=== PATIENT | male | born 1965 | race African-American/Black ===

== ENCOUNTER 2016-05-22 00:27 | Emergency (ER) | payer OTHER ==
[~2016-05-22] VITALS: Ht 170.2 cm; Wt 90.0 kg
[2016-05-22 00:30] VITALS: Ht 170.2 cm; Wt 90.0 kg
[2016-05-22] MEDS ORDERED: KETOROLAC 30 MG INJ IM STA (01:25)
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
[2016-05-22] MEDS ORDERED: HYDR-902 PO (01:35)
[2016-05-22] MEDS ORDERED: NAPR-260 PO (01:35)
[2016-05-22 02:23] VITALS: BP 142/88; PULSE 90; RESP 18; TEMP 98.3
== END 2016-05-22 02:28 | disposition home or self-care (01) ==
LOC: FTE 00:27
DX: M79.601 Pain in right arm (principal); I10 Essential (primary) hypertension; E11.9 Type 2 diabetes mellitus without complications; F17.210 Nicotine dependence, cigarettes, uncomplicated
CPT/HCPCS: 93005; 96372; J1885; Z7502

== ENCOUNTER 2016-11-13 00:49 | Emergency (ER) | payer OTHER ==
[~2016-11-13] VITALS: Ht 180.3 cm; Wt 83.0 kg
[~2016-11-13 00:49] MED LIST: HYDR-902 PO; NAPR-260 PO
[2016-11-13 00:58] VITALS: Ht 180.3 cm; Wt 83.0 kg
--- NOTE | 2016-11-13 01:47 | ERA ---
ER Documentation Chief Complaint Date/Time DATE: 11/13/16 TIME: 01:46 Chief Complaint Bloody stool HPI The patient is a 50-year-old male, presenting to the ER because dark right bloody stool intermittently for the last 3-4 days, associated with constipation. He has similar symptoms previously. He denies fever, chills, syncope, near syncope, weakness, neck pain, chest pain, abdominal pain, vomiting. He smokes and drinks and does marijuana Past medical history: Ulcerative colitis, hypertension, hemorrhoids Past surgical history: Abdominal surgery related to ulcerative colitis ROS All systems reviewed and are negative except as per history of present illness. Medications Home Meds Active Scripts Naproxen* (Naprosyn*) 500 Mg Tablet, 500 MG PO BID Y for PAIN AND/OR INFLAMMATION, #30 TAB Prov:PAOLO HO PA-C 05/22/16 Reported Medications Sitagliptin* (Januvia*) Unknown Strength Tablet, PO DAILY, #30 TAB 11/13/16 Enalapril Maleate* (Enalapril Maleate*) Unknown Strength Tablet, PO DAILY, TAB 11/13/16 Metoprolol Tartrate* (Lopressor*) Unknown Strength Tab, PO BID, #60 TAB 11/13/16 Discontinued Scripts Hydrocodone/Acetaminophen (Murdo 10-325 Tablet) 1 Each Tablet, 1 TAB PO Q6H Y for PAIN, #7 TAB Prov:PAOLO HO PA-C 05/22/16 Allergies Allergies: Coded Allergies: No Known Allergy (Unverified , 11/13/16) PMhx/Soc History of Surgery: No Anesthesia Reaction: No Hx Neurological Disorder: No Hx Respiratory Disorders: No Hx Cardiac Disorders: Yes (HTN) Hx Psychiatric Problems: No Hx Miscellaneous Medical Probl: No Hx Alcohol Use: Yes (socially ) Hx Substance Use: No Hx Tobacco Use: Yes (3 cig/day) Physical Exam Vitals Vital Signs Date Time Temp Pulse Resp B/P Pulse Ox O2 Delivery O2 Flow Rate FiO2 11/13/16 02:09 69 20 160/109 100 Room Air 11/13/16 00:58 98.3 78 20 127/94 98 Physical Exam Const: No acute distress. Head: Atraumatic. Eyes: Normal Conjunctiva. ENT: Normal External Ears, Nose and Mouth. Neck: Full range of motion. No meningismus. Resp: Clear to auscultation bilaterally. Cardio: Regular rate and rhythm. Abd: Soft, non distended, normal bowel sounds, non tender. Midline abdominal scar Skin: No petechiae or rashes. Back: No midline or flank tenderness. Ext: No cyanosis, or edema. Neur: Awake and alert. No focal deficit Psych: Normal Mood and Affect. Result Diagram: 11/13/165 11/13/16 0225 Results 24 hrs Laboratory Tests Test 11/13/16 02:25 White Blood Count 7.710^3/ul Red Blood Count 4.3310^6/ul Hemoglobin 14.3g/dl Hematocrit 40.8% Mean Corpuscular Volume 94.2fl Mean Corpuscular Hemoglobin 33.0pg Mean Corpuscular Hemoglobin Concent 35.0g/dl Red Cell Distribution Width 13.1% Platelet Count 12893^3/UL Mean Platelet Volume 11.6fl Neutrophils % 41.7% Lymphocytes % 46.0% Monocytes % 9.3% Eosinophils % 2.4% Basophils % 0.5% Nucleated Red Blood Cells % 0.0/100WBC Neutrophils # 3.210^3/ul Lymphocytes # 3.510^3/ul Monocytes # 0.710^3/ul Eosinophils # 0.210^3/ul Basophils # 0.010^3/ul Nucleated Red Blood Cells # 0.010^3/ul Prothrombin Time 13.3Sec Prothrombin Time Ratio 1.0 INR International Normalized Ratio 1.01 Activated Partial Thromboplast Time 28.5Sec Sodium Level 146mmol/L Potassium Level 4.2mmol/L Chloride Level 108mmol/L Carbon Dioxide Level 24mmol/L Anion Gap 18 Blood Urea Nitrogen 15mg/dl Creatinine 1.58mg/dl Glucose Level 91mg/dl Calcium Level 9.8mg/dl Total Bilirubin 0.2mg/dl Direct Bilirubin 0.00mg/dl Indirect Bilirubin 0.2mg/dl Aspartate Amino Transf (AST/SGOT) 58IU/L Alanine Aminotransferase (ALT/SGPT) 36IU/L Alkaline Phosphatase 103IU/L Total Protein 8.1g/dl Albumin 4.8g/dl Globulin 3.30g/dl Albumin/Globulin Ratio 1.45 Lipase 430U/L Ethyl Alcohol Level 144.0mg/dl [facility] EKG: Read by emergency physician Rate/Rhythm: Normal Sinus Rhythm 67 beats/min QRS, ST, T-waves: No ST elevation, no T inversion, septal Q waves Impression: Abnormal EKG MEDICAL MAKING DECISION: The patient is a 50-year-old male, presenting with acute hematochezia most likely due to hemorrhoids, acute alcohol abuse. He does not have any abdominal pain. He is stable for outpatient follow-up The differential diagnoses considered include but are not limited to gastritis, peptic ulcer disease, esophageal varices, Zamzam-Jara tear, carcinoma, polyp , hemorrhoid, fissure, diverticulosis, angiodysplasia. Departure Diagnosis: Primary Impression: Hemorrhoid Additional Impressions: Hematochezia Alcohol abuse Renal insufficiency Thrombocytopenia Condition: Good Comments I discussed the findings with the patient. I advised the patient to follow-up with the primary physician tomorrow for motor vehicle inspector appointment in about 1-2 days, sooner if needed and return if any concern. HARSHAD IRBY MD Nov 13, 2016 01:47
[2016-11-13 03:05] LABS: ADD SCAN DIFF NO
[2016-11-13 03:08] LABS: BASOPHILS % 0.5 % (0.0-2.0); EOSINOPHILS # 0.2 10^3/ul (0.0-0.5); EOSINOPHILS % 2.4 % (0.0-7.0); HEMATOCRIT 40.8 % (42.0-52.0); HEMOGLOBIN 14.3 g/dl (14.0-18.0); LYMPHOCYTES # 3.5 10^3/ul (0.8-2.9); MEAN CORPUSCULAR VOLUME 94.2 fl (82.0-101.0); MEAN PLATELET VOLUME 11.6 fl (7.4-10.4); MONOCYTE # 0.7 10^3/ul (0.3-0.9); MONOCYTES % 9.3 % (0.0-11.0); NEUTROPHIL # 3.2 10^3/ul (1.6-7.5); NEUTROPHILS % 41.7 % (39.0-77.0); PLATELET COUNT 119 10^3/UL (140-415); RED BLOOD COUNT 4.33 10^6/ul (4.70-6.10); RED CELL DISTRIBUTION WIDTH 13.1 % (11.5-14.5); WHITE BLOOD COUNT 7.7 10^3/ul (4.8-10.8)
[2016-11-13 03:27] LABS: INR 1.01; PROTIME 13.3 Sec (12.2-14.2)
[2016-11-13 03:28] LABS: ALBUMIN 4.8 g/dl (3.3-4.9); ALBUMIN/GLOBULIN RATIO 1.45; BILIRUBIN,INDIRECT 0.2 mg/dl (0-1.1); BILIRUBIN,TOTAL 0.2 mg/dl (0.2-1.3); CALCIUM 9.8 mg/dl (8.4-10.2); CREATININE 1.58 mg/dl (0.61-1.24); PARTIAL THROMBOPLASTIN TIME 28.5 Sec (25.0-35.0); POTASSIUM 4.2 mmol/L (3.5-5.1); TOTAL PROTEIN 8.1 g/dl (6.1-8.1)
[2016-11-13] MEDS ORDERED: SITA50TA2 PO (03:30)
[2016-11-13] MEDS ORDERED: ENAL10TA PO (03:30)
[2016-11-13] MEDS ORDERED: METO-429 PO (03:30)
[2016-11-13 04:18] VITALS: BP 124/98; PULSE 68; RESP 18
== END 2016-11-13 04:17 | disposition home or self-care (01) ==
LOC: E/R 00:49
DX: K64.9 Unspecified hemorrhoids (principal); R40.2252 Coma scale, best verbal response, oriented, at arrival to emergency department; F10.10 Alcohol abuse, uncomplicated; N28.9 Disorder of kidney and ureter, unspecified; D69.6 Thrombocytopenia, unspecified; I10 Essential (primary) hypertension; F17.210 Nicotine dependence, cigarettes, uncomplicated; R40.2142 Coma scale, eyes open, spontaneous, at arrival to emergency department; R40.2362 Coma scale, best motor response, obeys commands, at arrival to emergency department; Z79.84 Long term (current) use of oral hypoglycemic drugs
CPT/HCPCS: 36415; 80053; 80306; 83690; 85025; 85610; 85730; 86850; 86900; 86901; 93005

== ENCOUNTER 2017-08-01 12:02 | Emergency (ER) | END 2017-08-01 14:56 | disposition home or self-care (01) ==

== ENCOUNTER 2017-08-05 08:20 | Emergency (ER) | END 2017-08-05 09:11 | disposition home or self-care (01) ==

== ENCOUNTER 2017-08-30 07:59 | Emergency (ER) | END 2017-08-30 09:03 | disposition home or self-care (01) ==

== ENCOUNTER 2017-09-09 19:39 | Emergency (ER) | END 2017-09-09 22:53 | disposition home or self-care (01) ==

== ENCOUNTER 2018-01-30 10:23 | Emergency (ER) | END 2018-01-30 11:36 | disposition home or self-care (01) ==

== ENCOUNTER 2018-06-07 06:53 | Emergency (ER) | payer OTHER ==
[~2018-06-07] VITALS: Wt 78.0 kg
[~2018-06-07 06:53] MED LIST changes: +ASPI-817 PO; +ENAL20TA PO; -HYDR-902 PO; +HYDR28.39 RC; +IBUP-1542 PO; +METO-429 PO; -NAPR-260 PO; +NAPR-985 PO; +SITA25TA3 PO; +SITA50TA2 PO; +SULF500T5 PO
[2018-06-07 06:56] VITALS: BP 170/78; PULSE 90; RESP 18
[2018-06-07] MEDS ORDERED: SITA25TA3 PO (07:10)
--- NOTE | 2018-06-07 07:23 | ERD ---
ER Documentation Chief Complaint Chief Complaint med refill HPI 52-year-old male patient with a past medical history of diabetes, hypertension presents the ED on a medication refill. Patient reports that he takes Januvia. States that he also takes metoprolol, enalapril for his hypertension, reports that he still has these medications at home. Denies any chest pain, shortness of breath, fever,nausea, vomiting, diarrhea, neck stiffness. ROS All systems reviewed and are negative except as per history of present illness. Medications Home Meds Active Scripts Sitagliptin* (Januvia*) 25 Mg Tablet, 25 MG PO DAILY, #30 TAB Prov:AMY GAVIN PA-C 06/07/18 Sitagliptin* (Januvia*) 25 Mg Tablet, 25 MG PO DAILY, #30 TAB Prov:CATIE SAM PA-C 01/30/18 Ibuprofen* (Motrin*) 600 Mg Tab, 600 MG PO Q6, #30 TAB Prov:CATIE SAM PA-C 01/30/18 Hydrocortisone (PROCTOSOL-HC) 28.35 Gm Cream..g., 28.35 GM RC DAILY, #1 Prov:CATIE SAM PA-C 01/30/18 Naproxen* (Naprosyn*) 500 Mg Tablet, 500 MG PO BID PRN for PAIN AND/OR INFLAMMATION, #30 TAB Prov:KATIE ROBLEDO MD 09/09/17 Reported Medications Sitagliptin* (Januvia*) 50 Mg Tablet, 50 MG PO DAILY, #30 TAB 09/09/17 Aspirin* (Aspirin* EC) 81 Mg Tablet.dr, 81 MG PO DAILY, TAB 09/09/17 Sulfasalazine* (Sulfazine*) 500 Mg Tablet, 1000 MG PO BID, TAB 09/09/17 Metoprolol Tartrate* (Lopressor*) 50 Mg Tab, 50 MG PO BID, #60 TAB 09/09/17 Enalapril Maleate* (Enalapril Maleate*) 20 Mg Tablet, 20 MG PO BID, TAB 09/09/17 Allergies Allergies: Coded Allergies: No Known Allergy (Unverified , 09/09/17) PMhx/Soc History of Surgery: Yes (RIGHT LEG AND BOTH WRISTS 2008) Anesthesia Reaction: No Hx Neurological Disorder: No Hx Respiratory Disorders: No Hx Cardiac Disorders: Yes (HTN,HYPERCHOLESTEROLEMIA) Hx Psychiatric Problems: Yes (DEPRESSION) Hx Miscellaneous Medical Probl: Yes (DM) Hx Alcohol Use: Yes (almost everyday) Hx Substance Use: Yes (marijuana) Hx Tobacco Use: Yes Smoking Status: Current every day smoker FmHx Family History: No diabetes, No coronary disease Physical Exam Vitals Vital Signs Date Temp Pulse Resp B/P (MAP) Pulse Ox O2 O2 Flow FiO2 Time Delivery Rate 06/07/18 98.2 90 18 170/78 99 06:56 (108) Physical Exam Const: Zlm-gbb-[id number], well-nourished. In no acute distress. Head: Atraumatic, normocephalic Eyes: Normal Conjunctiva without injection. No purulent discharge. PERRL. EOMI ENT: Normal external ear. Ear canal without erythema. Tympanic membrane pearly raya without effusion or bulging. Nasal canal clear with normal turbinates. Moist oropharynx without tonsillar exudates. Non-erythematous pharynx. Uvula midline. No drooling. No trismus. Neck: Full range of motion. No meningismus. No cervical lymphadenopathy. Resp: Clear to auscultation bilaterally. No wheezing, rhonchi, rales, or crackles. No accessory muscle use. No retractions. Cardio: Regular rate and rhythm. No murmurs, rubs or gallops. Abd: Soft, non tender, non distended. Normal bowel sounds. No palpable masses. No rebound tenderness. No guarding. Skin: No petechiae or rashes Back: No midline tenderness. No CVA tenderness. Ext: No cyanosis, or edema. Neur: Awake and alert. Psych: Normal Mood and Affect Procedures/MDM 52-year-old male patient with no significant past medical history presents to ED for a medication refill. Patient states that he wants a refill for Januvia 25 mg PO daily. Patient's blood pressure is 170/78. Patient did not take his blood pressure medications today. Strictly instructed to take his blood pressure medication at home. Blood Pressure Assessment: Patient's blood pressure was elevated (>120/80) but appears stable without evidence of hypertension emergency or urgency. The patient was counseled about the risks of hypertension and urged to pursue outpatient monitoring and therapy within a week with their primary care physician. Low suspicion for acute myocardial infarction, pneumothorax, pericarditis, myocarditis, endocarditis, pneumonia, cardiac tamponade, pulmonary embolism, pleural effusion, AAA, aortic dissection, Boerhaave's syndrome, cardiac dysrhythmias,meningitis, intracranial bleed, seizure, stroke, TIA or other emergent conditions. Diagnosis: Encounter for medication refill Discharge medications: Carmeloia Follow up with primary care physician in 1-2 days. Instructed patient to return to the ED sooner for any worsening symptoms. Patient's questions were answered. Patient is hemodynamically stable. Patient understood and agreed with discharge plan. Patient discharged stable. Disclaimer: Inadvertent spelling and grammatical errors are likely due to EHR/dictation software use and do not reflect on the overall quality of patient care. Also, please note that the electronic time recorded on this note does not necessarily reflect the actual time of the patient encounter. Departure Diagnosis: Primary Impression: Encounter for medication refill Condition: Stable Patient Instructions: Taking Medicine Safely, High Blood Pressure (Hypertension), DIABETES, General Info Referrals: [facility] YOU HAVE RECEIVED A MEDICAL SCREENING EXAM AND THE RESULTS INDICATE THAT YOU DO NOT HAVE A CONDITION THAT REQUIRES URGENT TREATMENT IN THE EMERGENCY DEPARTMENT. FURTHER EVALUATION AND TREATMENT OF YOUR CONDITION CAN WAIT UNTIL YOU ARE SEEN IN YOUR DOCTORS OFFICE WITHIN THE NEXT 1-2 DAYS. IT IS YOUR RESPONSIBILITY TO MAKE AN APPOINTMENT FOR FOLOW-UP CARE. IF YOU HAVE A PRIMARY DOCTOR --you should call your primary doctor and schedule an appointment IF YOU DO NOT HAVE A PRIMARY DOCTOR YOU CAN CALL OUR PHYSICIAN REFERRAL HOTLINE AT IF YOU CAN NOT AFFORD TO SEE A PHYSICIAN YOU CAN CHOSE FROM THE FOLLOWING [facility] [address] [facility]. [facility] [address] [facility]. [facility] [address] [facility] [address] [facility]. [facility] [address] [facility]. [facility]. [address] [facility]. [facility] YOU HAVE RECEIVED A MEDICAL SCREENING EXAM AND THE RESULTS INDICATE THAT YOU DO NOT HAVE A CONDITION THAT REQUIRES URGENT TREATMENT IN THE EMERGENCY DEPARTMENT. FURTHER EVALUATION AND TREATMENT OF YOUR CONDITION CAN WAIT UNTIL YOU ARE SEEN IN YOUR DOCTORS OFFICE WITHIN THE NEXT 1-2 DAYS. IT IS YOUR RESPONSIBILITY TO MAKE AN APPOINTMENT FOR FOLOW-UP CARE. IF YOU HAVE A PRIMARY DOCTOR --you should call your primary doctor and schedule and appointment IF YOU DO NOT HAVE A PRIMARY DOCTOR YOU CAN CALL OUR PHYSICIAN REFERRAL HOTLINE AT . IF YOU CAN NOT AFFORD TO SEE A PHYSICIAN YOU CAN CHOSE FROM THE FOLLOWING [facility] INSTITUTIONS: [facility] [place] [address] [place] [address] [facility] [address] [place] [address] [facility] + [facility] [address] [place] [address] [facility] URGENT CARE/SPECIALTIES Additional Instructions: Call your primary care doctor TOMORROW for an appointment during the next 2-3 days.See the doctor sooner or return here if your condition worsens before your appointment time. AMY GAVIN PA-C Jun 07, 2018 07:23
== END 2018-06-07 07:31 | disposition home or self-care (01) ==
LOC: FTE 06:53
DX: Z76.0 Encounter for issue of repeat prescription (principal); E11.9 Type 2 diabetes mellitus without complications; I10 Essential (primary) hypertension; F17.210 Nicotine dependence, cigarettes, uncomplicated; Z79.82 Long term (current) use of aspirin; Z79.84 Long term (current) use of oral hypoglycemic drugs
CPT/HCPCS: 99281

== ENCOUNTER 2018-07-15 09:34 | Emergency (ER) | payer OTHER ==
[~2018-07-15] VITALS: Ht 180.3 cm; Wt 76.1 kg
[2018-07-15 09:36] VITALS: BP 167/114; PULSE 87; RESP 18; Ht 180.3 cm; Wt 76.1 kg
[2018-07-15] MEDS ORDERED: IBUP-1561 PO (10:20)
[2018-07-15] MEDS ORDERED: SITA25TA3 PO (10:20)
--- NOTE | 2018-07-15 10:27 | ERD ---
ER Documentation Chief Complaint Chief Complaint FOR REFILL ON DAIBETIC PILLS HPI 52-year-old male presents for refill on Januvia which he ran out 4 days ago. He is otherwise completely asymptomatic, and has no acute medical complaints. Denies fever, denies chest pain or shortness of breath. ROS All systems reviewed and are negative except as per history of present illness. Medications Home Meds Active Scripts Ibuprofen* (Motrin*) 400 Mg Tab, 400 MG PO Q8, #30 TAB Prov:KATIE ERNST MD 07/15/18 Sitagliptin* (Januvia*) 25 Mg Tablet, 25 MG PO DAILY, #30 TAB 3 Refills Prov:KATIE ERNST MD 07/15/18 Sitagliptin* (Januvia*) 25 Mg Tablet, 25 MG PO DAILY, #30 TAB Prov:AMY GAVIN PA-C 06/07/18 Sitagliptin* (Januvia*) 25 Mg Tablet, 25 MG PO DAILY, #30 TAB Prov:CATIE SAM PA-C 01/30/18 Ibuprofen* (Motrin*) 600 Mg Tab, 600 MG PO Q6, #30 TAB Prov:CATIE SAM PA-C 01/30/18 Hydrocortisone (PROCTOSOL-HC) 28.35 Gm Cream..g., 28.35 GM RC DAILY, #1 Prov:CATIE SAM PA-C 01/30/18 Naproxen* (Naprosyn*) 500 Mg Tablet, 500 MG PO BID PRN for PAIN AND/OR INFLAMMATION, #30 TAB Prov:KATIE ROBLEDO MD 09/09/17 Reported Medications Sitagliptin* (Januvia*) 50 Mg Tablet, 50 MG PO DAILY, #30 TAB 09/09/17 Aspirin* (Aspirin* EC) 81 Mg Tablet.dr, 81 MG PO DAILY, TAB 09/09/17 Sulfasalazine* (Sulfazine*) 500 Mg Tablet, 1000 MG PO BID, TAB 09/09/17 Metoprolol Tartrate* (Lopressor*) 50 Mg Tab, 50 MG PO BID, #60 TAB 09/09/17 Enalapril Maleate* (Enalapril Maleate*) 20 Mg Tablet, 20 MG PO BID, TAB 09/09/17 Allergies Allergies: Coded Allergies: No Known Allergy (Unverified , 09/09/17) PMhx/Soc History of Surgery: Yes (RIGHT LEG AND BOTH WRISTS 2008) Anesthesia Reaction: No Hx Neurological Disorder: No Hx Respiratory Disorders: No Hx Cardiac Disorders: Yes (HTN,HYPERCHOLESTEROLEMIA) Hx Psychiatric Problems: Yes (DEPRESSION) Hx Miscellaneous Medical Probl: Yes (DM) Hx Alcohol Use: Yes (almost everyday) Hx Substance Use: Yes (marijuana) Hx Tobacco Use: Yes Physical Exam Vitals Vital Signs Date Temp Pulse Resp B/P (MAP) Pulse Ox O2 O2 Flow FiO2 Time Delivery Rate 07/15/18 98.0 87 18 167/114 99 09:36 (131) Physical Exam Const: Afebrile, nontoxic-appearing Head: Atraumatic Eyes: Normal conjunctiva ENT: Normal external ears, nose and mouth. Neck: Resp: Normal respiratory effort Neur: Awake and alert Psych: Normal mood and affect Procedures/MDM 52-year-old male presents for evaluation of refill of his diabetes medication. Exam reveals a well-appearing nontoxic male in no acute distress, he has been out of his medications for 4 days. He has no Kussmaul breathing, is alert awake, smiling on evaluation, no clinical signs of DKA, at this point he is stable for discharge home, discharged with no acute distress. 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 KATIE ERNST MD Jul 15, 2018 10:27
== END 2018-07-15 10:40 | disposition home or self-care (01) ==
LOC: E/R 09:34
DX: E13.8 Other specified diabetes mellitus with unspecified complications (principal); I10 Essential (primary) hypertension; Z79.82 Long term (current) use of aspirin; Z79.84 Long term (current) use of oral hypoglycemic drugs; Z87.891 Personal history of nicotine dependence
CPT/HCPCS: 99281

== ENCOUNTER 2018-07-30 14:41 | Emergency (ER) | payer OTHER ==
[~2018-07-30] VITALS: Ht 172.7 cm; Wt 79.5 kg
[~2018-07-30 14:41] MED LIST changes: +IBUP-1561 PO
[2018-07-30 14:44] VITALS: Ht 172.7 cm; Wt 79.5 kg
[2018-07-30] MEDS ORDERED: morphine 4 MG/ML VIAL IV STA (14:59)
[2018-07-30] MEDS ORDERED: ONDANSETRON 4 MG INJ IV STA (14:59)
[2018-07-30] MEDS ORDERED: SOD CHLORIDE 0.9% 1,000 ML IV STA (14:59)
[2018-07-30] MEDS ORDERED: SITA25TA3 PO (15:15)
[2018-07-30] MEDS ORDERED: ARIP30TA4 PO (15:15)
[2018-07-30] MEDS ORDERED: ENAL20TA PO (15:16)
[2018-07-30] MEDS ORDERED: METO-429 PO (15:16)
[2018-07-30] MEDS ORDERED: SULF500T5 PO (15:18)
[2018-07-30] MEDS ORDERED: SOD CHLORIDE 0.9% 100 ML ONE (16:19)
[2018-07-30] MEDS ORDERED: IODIXANOL LOCM 100 ML BTL ONE (16:19)
--- NOTE | 2018-07-30 19:26 | ERD ---
ER Documentation Chief Complaint Chief Complaint R881, RECTAL BLEEDING SINCE AM HPI This is a 52-year-old male with a known history of ulcerative colitis and previous cholecystectomy several years prior to arrival with reversal. The patient states he developed an episode of rectal bleeding this morning after having a bowel movement. He stated bright red blood was coating his stool. He did not feel lightheaded or dizzy. He had no hemoptysis no hematemesis. The patient had another bowel movement just prior to arrival and noticed the same symptoms with abdominal cramping. The patient has had no fevers or shaking or chills. The patient did indicate he was watching sports and had been drinking beer. He however denies a history of alcohol abuse. The patient does smoke tobacco. Patient has a history of type 2 diabetes. He denies any polyuria polydipsia. Abdominal cramping he states his in the lower abdomen. Did not radiate to the back. The abdominal cramping is a 6 out of 10 in intensity. ROS All systems reviewed and are negative except as per history of present illness. Medications Home Meds Reported Medications Sulfasalazine* (Sulfazine*) 500 Mg Tablet, 1000 MG PO BID, TAB 07/30/18 Metoprolol Tartrate* (Lopressor*) 50 Mg Tab, 50 MG PO BID, #60 TAB 07/30/18 Enalapril Maleate* (Enalapril Maleate*) 20 Mg Tablet, 20 MG PO BID, TAB 07/30/18 Aripiprazole* (Abilify*) 30 Mg Tablet, 30 MG PO DAILY, #30 TAB 07/30/18 Sitagliptin* (Januvia*) 25 Mg Tablet, 25 MG PO DAILY, #30 TAB 07/30/18 Discontinued Reported Medications Sitagliptin* (Januvia*) 50 Mg Tablet, 50 MG PO DAILY, #30 TAB 09/09/17 Aspirin* (Aspirin* EC) 81 Mg Tablet.dr, 81 MG PO DAILY, TAB 09/09/17 Sulfasalazine* (Sulfazine*) 500 Mg Tablet, 1000 MG PO BID, TAB 09/09/17 Metoprolol Tartrate* (Lopressor*) 50 Mg Tab, 50 MG PO BID, #60 TAB 09/09/17 Enalapril Maleate* (Enalapril Maleate*) 20 Mg Tablet, 20 MG PO BID, TAB 09/09/17 Discontinued Scripts Ibuprofen* (Motrin*) 400 Mg Tab, 400 MG PO Q8, #30 TAB Prov:KATIE ERNST MD 07/15/18 Sitagliptin* (Januvia*) 25 Mg Tablet, 25 MG PO DAILY, #30 TAB 3 Refills Prov:KATIE ERNST MD 07/15/18 Sitagliptin* (Januvia*) 25 Mg Tablet, 25 MG PO DAILY, #30 TAB Prov:AMY GAVIN PA-C 06/07/18 Sitagliptin* (Januvia*) 25 Mg Tablet, 25 MG PO DAILY, #30 TAB Prov:CATIE SAM PA-C 01/30/18 Ibuprofen* (Motrin*) 600 Mg Tab, 600 MG PO Q6, #30 TAB Prov:CATIE SAM PA-C 01/30/18 Hydrocortisone (PROCTOSOL-HC) 28.35 Gm Cream..g., 28.35 GM RC DAILY, #1 Prov:CATIE SAM PA-C 01/30/18 Naproxen* (Naprosyn*) 500 Mg Tablet, 500 MG PO BID PRN for PAIN AND/OR INFLAMMATION, #30 TAB Prov:KATIE ROBLEDO MD 09/09/17 Allergies Allergies: Coded Allergies: No Known Allergy (Unverified , 07/30/18) PMhx/Soc History of Surgery: Yes (RIGHT LEG AND BOTH WRISTS 2008) Anesthesia Reaction: No Hx Neurological Disorder: No Hx Respiratory Disorders: No Hx Cardiac Disorders: Yes (HTN,HYPERCHOLESTEROLEMIA) Hx Psychiatric Problems: Yes (DEPRESSION) Hx Miscellaneous Medical Probl: Yes (DM, ULCERATIVE COLITIS) Hx Alcohol Use: No Hx Substance Use: No Hx Tobacco Use: No Smoking Status: Never smoker Physical Exam Vitals Vital Signs Date Temp Pulse Resp B/P (MAP) Pulse Ox O2 O2 Flow FiO2 Time Delivery Rate 07/30/18 98.2 78 18 186/120 98 Room Air 15:15 (142) 07/30/18 98.1 83 18 181/114 98 14:44 (136) Physical Exam Constitutional:Well-developed. Well-nourished. HEENT:Normocephalic. Atraumatic.Pupils were equal round reactive to light. Moist mucous membranes.No tonsillar exudates. Neck: No nuchal rigidity. No lymphadenopathy. No posterior cervical spine tenderness or step-offs. Respiratory: Not using accessory muscles of respiration.Lungs were clear to auscultation bilaterally. No rhonchi. No rales. No wheezing. Cardiovascular: Regular rate regular rhythm.No murmurs. No rubs were appreciated.S1, S2 normal. Distal pulses are palpable 2+ bilaterally. GI: Abdomen was soft. Tenderness in the left lower quadrant.. Non Distended. No pulsatile abdominal masses or bruits. No rebound. No guarding. Bowel sounds were present and normal. Muscle skeletal: Full range of motion of both the upper and lower extremities bilaterally.Normal muscle tone.No assymetrical calf tenderness or swelling. Skin: No petechia, no purpura. No lesions on the palms or the soles of the feet. No maculopapular rash. NEURO: Patient was alert, awake, orientated x3.No facial droop. Gait observed and normal with no ataxia.Speech had regular rate and rhythm. No focal neurological deficits. Smell of alcohol but gait was normal and no slurred speech Result Diagram: 07/30/18 1522 07/30/18 1522 Results 24 hrs Laboratory Tests Test 07/30/18 15:20 07/30/18 15:22 Urine Color STRAW Urine Clarity CLEAR Urine pH 6.0 Urine Specific [place] 1.006 Urine Ketones NEGATIVE mg/dL Urine Nitrite NEGATIVE mg/dL Urine Bilirubin NEGATIVE mg/dL Urine Urobilinogen NEGATIVE mg/dL Urine Leukocyte Esterase NEGATIVE Yony/ul Urine Microscopic RBC 0 /HPF Urine Microscopic WBC 2 /HPF Urine Hemoglobin 1+ mg/dL Urine Glucose NEGATIVE mg/dL Urine Total Protein NEGATIVE mg/dl Urine Opiates Screen Positive Urine Barbiturates Negative Urine Amphetamines Screen Negative Urine Benzodiazepines Screen Negative Urine Cocaine Screen Positive Urine Cannabinoids Negative White Blood Count 5.8 10^3/ul Red Blood Count 4.21 10^6/ul Hemoglobin 14.0 g/dl Hematocrit 40.3 % Mean Corpuscular Volume 95.7 fl Mean Corpuscular Hemoglobin 33.3 pg Mean Corpuscular Hemoglobin Concent 34.7 g/dl Red Cell Distribution Width 12.1 % Platelet Count 170 10^3/UL Mean Platelet Volume 10.8 fl Immature Granulocytes % 0.300 % Neutrophils % 51.3 % Lymphocytes % 36.8 % Monocytes % 8.8 % Eosinophils % 1.6 % Basophils % 1.2 % Nucleated Red Blood Cells % 0.0 /100WBC Immature Granulocytes # 0.020 10^3/ul Neutrophils # 3.0 10^3/ul Lymphocytes # 2.1 10^3/ul Monocytes # 0.5 10^3/ul Eosinophils # 0.1 10^3/ul Basophils # 0.1 10^3/ul Nucleated Red Blood Cells # 0.0 10^3/ul Prothrombin Time 12.6 Sec Prothrombin Time Ratio 1.0 INR International Normalized Ratio 0.93 Activated Partial Thromboplast Time 28.6 Sec Sodium Level 142 mmol/L Potassium Level 3.3 mmol/L Chloride Level 106 mmol/L Carbon Dioxide Level 25 mmol/L Anion Gap 11 Blood Urea Nitrogen 14 mg/dl Creatinine 1.42 mg/dl Est Glomerular Filtrat Rate mL/min > 60 mL/min Glucose Level 99 mg/dl Calcium Level 9.5 mg/dl Total Bilirubin 0.5 mg/dl Direct Bilirubin 0.00 mg/dl Indirect Bilirubin 0.5 mg/dl Aspartate Amino Transf (AST/SGOT) 72 IU/L Alanine Aminotransferase (ALT/SGPT) 26 IU/L Alkaline Phosphatase 89 IU/L Troponin I < 0.012 ng/ml Total Protein 8.3 g/dl Albumin 4.3 g/dl Globulin 4.00 g/dl Albumin/Globulin Ratio 1.07 Lipase 219 U/L Salicylates Level < 1.0 mg/dl Acetaminophen Level < 10.0 ug/ml Ethyl Alcohol Level 63.0 mg/dl Current Medications Medications Dose Sig/Omid Start Time Status Last (Trade) Ordered Route PRN Stop Time Admin Dose Reason Admin Sodium 1,000 ml @ Q1H STAT 07/30/18 DC 07/30/18 Chloride 1,000 mls/hr IV 14:59 15:26 07/30/18 15:58 Morphine 4 mg ONCE STAT 07/30/18 DC 07/30/18 Sulfate IV 14:59 15:27 (morphine) 07/30/18 15:03 Ondansetron 4 mg ONCE STAT 07/30/18 DC 07/30/18 HCl (Zofran IV 14:59 15:26 Inj) 07/30/18 15:03 IV Flush 10 ml STK-MED 07/30/18 DC 07/30/18 (NS 10 ml) ONCE .ROUTE 16:19 16:46 07/30/18 16:20 Sodium 100 ml @ ud STK-MED 07/30/18 DC 07/30/18 Chloride ONCE .ROUTE 16:19 16:52 07/30/18 16:20 Iodixanol 100 ml STK-MED 07/30/18 DC 07/30/18 (Visipaque ONCE .ROUTE 16:19 16:52 Locm) 07/30/18 16:20 Clonidine 0.1 mg ONCE ONCE 07/30/18 DC 07/30/18 (Catapres) PO 17:30 17:51 07/30/18 17:31 Procedures/MDM The patient presented to the emergency department with hematochezia, suggesting a lower gastrointestinal bleeding. My differential diagnosis included but was not limited to diverticulosis, cancer, polyps, colitis, internal or external hemorrhoids, IBD, and vascular etiologies such as angiodysplasia or aortocolonic fistula. The patient was placed on a telemetry monitor, continuous pulse oximetry, and IV access established by nursing staff. Patient was given intravenous morphine and Zofran. His pain is completely resolved. The patient's hemoglobin was stable. His fecal occult blood test was positive. However there is no gross blood per rectum. 12 Lead EKG tracing ordered and reviewed by myself showed: Normal sinus rhythm of 85 bpm and no arrhythmia. CO interval normal. QRS duration normal. No ST segment elevation No ST segment depression. No changes consistent with acute ischemia. CT scan of the abdomen were reviewed by myself and was well of the radiologist indicated the following: Atherosclerosis. Cystic air spaces at the bases of the lower lung lobes posteriorly right greater than left with the largest cystic air space measuring approximately 3.1 x 1.5 cm on the right. There is nodular left pleural thi ckening with irregular margins which could be secondary to fibrotic changes measuring approximately 1.3 x 0.5 cm. Follow-up CT in approximate 3 months is recommended to confirm stability. Opaque sutures in the rectum and in the small bowel in the right lower abdomen. The patient appears to be a status post partial colectomy with anastomosis with small bowel. Observation Note: Time: 5 hours Family Hx: No Hypertension Evaluation: Multiple exams showed improving symptoms and no evidence of severe rectal bleeding this time and therefore I do feel he can be safely discharged home. He does have a gastrointestinal knowledge is that he said he can see within the next 24 hours. He was clinically sober at the time of his discharge. Departure Diagnosis: Primary Impression: Lower GI bleed Additional Impression: Ulcerative colitis, chronic Condition: Fair Patient Instructions: Ulcerative Colitis, Rectal Bleed, Stable NISA GUEVARA MD Jul 30, 2018 19:25
[2018-07-30 19:30] VITALS: BP 150/104; PULSE 77; RESP 17
== END 2018-07-30 19:46 | disposition home or self-care (01) ==
LOC: E/R 14:41
DX: K92.2 Gastrointestinal hemorrhage, unspecified (principal); E11.9 Type 2 diabetes mellitus without complications; I10 Essential (primary) hypertension; K51.911 Ulcerative colitis, unspecified with rectal bleeding; Z79.84 Long term (current) use of oral hypoglycemic drugs; Z87.891 Personal history of nicotine dependence
CPT/HCPCS: 36415; 74177; 80053; 80307; 81001; 83690; 84484; 85025; 85610; 85730; 87040; 87086; 93005; 96361; 96374; 96375; J2270; J2405; J7030; Q9967; Z7502; Z7610

== ENCOUNTER 2018-09-27 15:01 | Emergency (ER) | payer OTHER ==
[~2018-09-27] VITALS: Ht 177.8 cm; Wt 71.8 kg
[~2018-09-27 15:01] MED LIST changes: +ARIP30TA4 PO; -ASPI-817 PO; -HYDR28.39 RC; -IBUP-1542 PO; -IBUP-1561 PO; -NAPR-985 PO; -SITA50TA2 PO
[2018-09-27 15:03] VITALS: BP 158/92; PULSE 68; RESP 18; Ht 177.8 cm; Wt 71.8 kg
[2018-09-27] MEDS ORDERED: METO-429 PO (15:37)
[2018-09-27] MEDS ORDERED: ENAL20TA PO (15:37)
[2018-09-27] MEDS ORDERED: SITA25TA3 PO (15:37)
[2018-09-27] MEDS ORDERED: CETI10CA PO (15:37)
--- NOTE | 2018-09-27 15:43 | ERD ---
ER Documentation Chief Complaint Chief Complaint for med refill on diabetes and htn meds HPI 52-year-old male patient with a past medical history of diabetes, hypertension presents to the ED complaining of wanting a refill for his Januvia, metoprolol and enalapril. Reports that he takes Januvia 25 mg daily, metoprolol 50 mg twice daily, enalapril 25 mg twice daily. Denies any fever, chills, nausea, vomiting, chest pain, shortness of breath. Patient reports that he would like a medication for his rhinorrhea. Denies any cough, dyspnea on exertion, orthopnea. ROS All systems reviewed and are negative except as per history of present illness. Medications Home Meds Active Scripts Cetirizine Hcl* (Zyrtec*) 10 Mg Capsule, 10 MG PO DAILY, #10 TAB.CHEW Prov:AMY GAVIN PA-C 09/27/18 Sitagliptin* (Januvia*) 25 Mg Tablet, 25 MG PO DAILY, #30 TAB Prov:AMY GAVIN PA-C 09/27/18 Metoprolol Tartrate* (Lopressor*) 50 Mg Tab, 50 MG PO BID, #60 TAB Prov:AMY GAVIN PA-C 09/27/18 Enalapril Maleate* (Enalapril Maleate*) 20 Mg Tablet, 20 MG PO BID, #60 TAB Prov:AMY GAVIN PA-C 09/27/18 Reported Medications Sulfasalazine* (Sulfazine*) 500 Mg Tablet, 1000 MG PO BID, TAB 07/30/18 Metoprolol Tartrate* (Lopressor*) 50 Mg Tab, 50 MG PO BID, #60 TAB 07/30/18 Enalapril Maleate* (Enalapril Maleate*) 20 Mg Tablet, 20 MG PO BID, TAB 07/30/18 Aripiprazole* (Abilify*) 30 Mg Tablet, 30 MG PO DAILY, #30 TAB 07/30/18 Sitagliptin* (Januvia*) 25 Mg Tablet, 25 MG PO DAILY, #30 TAB 07/30/18 Allergies Allergies: Coded Allergies: No Known Allergy (Unverified , 07/30/18) PMhx/Soc History of Surgery: Yes (RIGHT LEG AND BOTH WRISTS 2008) Anesthesia Reaction: No Hx Neurological Disorder: No Hx Respiratory Disorders: No Hx Cardiac Disorders: Yes (HTN,HYPERCHOLESTEROLEMIA) Hx Psychiatric Problems: Yes (DEPRESSION) Hx Miscellaneous Medical Probl: Yes (DM, ULCERATIVE COLITIS) Hx Alcohol Use: No Hx Substance Use: No Hx Tobacco Use: No Smoking Status: Never smoker FmHx Family History: No diabetes, No coronary disease Physical Exam Vitals Vital Signs Date Temp Pulse Resp B/P (MAP) Pulse Ox O2 O2 Flow FiO2 Time Delivery Rate 09/27/18 98.1 68 18 158/92 98 15:03 (114) Physical Exam Const: [id number], well-nourished. In no acute distress. Head: Atraumatic, normocephalic Eyes: Normal Conjunctiva without injection. No purulent discharge. PERRL. EOMI ENT: Normal external ear. Ear canal without erythema. Tympanic membrane pearly raya without effusion or bulging. Nasal canal clear with normal turbinates. Mo ist oropharynx without tonsillar exudates. Non-erythematous pharynx. Uvula midline. No drooling. No trismus. Neck: Full range of motion. No meningismus. No cervical lymphadenopathy. Resp: Clear to auscultation bilaterally. No wheezing, rhonchi, rales, or crackles. No accessory muscle use. No retractions. Cardio: Regular rate and rhythm. No murmurs, rubs or gallops. Abd: Soft, non tender, non distended. Normal bowel sounds. No palpable masses. No rebound tenderness. No guarding. Skin: No petechiae or rashes Back: No midline tenderness. No CVA tenderness. Ext: No cyanosis, or edema. Neur: Awake and alert. Psych: Normal Mood and Affect Procedures/MDM 52-year-old male patient with a past medical history of diabetes, hypertension presents to ED wanting a medication refill for Januvia, enalapril, metoprolol. Patient's blood pressure is 158/92. Blood Pressure Assessment: Patient's blood pressure was elevated (>120/80) but appears stable without evidence of hypertension emergency or urgency. The patient was counseled about the risks of hypertension and urged to pursue outpatient monitoring and therapy within a week with their primary care physician. Low suspicion for acute myocardial infarction, pneumothorax, pericarditis, myocarditis, endocarditis, pneumonia, cardiac tamponade, pulmonary embolism, pleural effusion, AAA, aortic dissection, Boerhaave's syndrome, cardiac dysrhythmias,meningitis, intracranial bleed, seizure, stroke, TIA or other emergent conditions. Diagnosis: Encounter for medication refill, Rhinorrhea Discharge medications: Januvia, Zyrtec, Lopressor, Enalapril Follow up with primary care physician in 1-2 days. Instructed patient to return to the ED sooner for any worsening symptoms. Patient's questions were answered. Patient is hemodynamically stable. Patient understood and agreed with discharge plan. Patient discharged stable. Disclaimer: Inadvertent spelling and grammatical errors are likely due to EHR/dictation software use and do not reflect on the overall quality of patient care. Also, please note that the electronic time recorded on this note does not necessarily reflect the actual time of the patient encounter. Departure Diagnosis: Primary Impression: Encounter for medication refill Additional Impression: Rhinorrhea Condition: Stable Patient Instructions: Taking Medicine Safely, High Blood Pressure (Hypertension), DIABETES, General Info, Allergic Rhinitis Referrals: COUNT INCLUDES THE [facility] YOU HAVE RECEIVED A MEDICAL SCREENING EXAM AND THE RESULTS INDICATE THAT YOU DO NOT HAVE A CONDITION THAT REQUIRES URGENT TREATMENT IN THE EMERGENCY DEPARTMENT. FURTHER EVALUATION AND TREATMENT OF YOUR CONDITION CAN WAIT UNTIL YOU ARE SEEN IN YOUR DOCTORS OFFICE WITHIN THE NEXT 1-2 DAYS. IT IS YOUR RESPONSIBILITY TO MAKE AN APPOINTMENT FOR FOLOW-UP CARE. IF YOU HAVE A PRIMARY DOCTOR --you should call your primary doctor and schedule an appointment IF YOU DO NOT HAVE A PRIMARY DOCTOR YOU CAN CALL OUR PHYSICIAN REFERRAL HOTLINE AT IF YOU CAN NOT AFFORD TO SEE A PHYSICIAN YOU CAN CHOSE FROM THE FOLLOWING [facility] [address] [facility] [place] [address] [facility] [address] [facility] [address] [facility] [address] [facility]. [facility] [address] [facility]. [facility]. [address] [facility]. [facility] YOU HAVE RECEIVED A MEDICAL SCREENING EXAM AND THE RESULTS INDICATE THAT YOU DO NOT HAVE A CONDITION THAT REQUIRES URGENT TREATMENT IN THE EMERGENCY DEPARTMENT. FURTHER EVALUATION AND TREATMENT OF YOUR CONDITION CAN WAIT UNTIL YOU ARE SEEN IN YOUR DOCTORS OFFICE WITHIN THE NEXT 1-2 DAYS. IT IS YOUR RESPONSIBILITY TO M KAREL AN APPOINTMENT FOR FOLOW-UP CARE. IF YOU HAVE A PRIMARY DOCTOR --you should call your primary doctor and schedule and appointment IF YOU DO NOT HAVE A PRIMARY DOCTOR YOU CAN CALL OUR PHYSICIAN REFERRAL HOTLINE AT . IF YOU CAN NOT AFFORD TO SEE A PHYSICIAN YOU CAN CHOSE FROM THE FOLLOWING [facility] INSTITUTIONS: [facility] [address] [place] [address] [facility] [address] [place] [address] [facility] [address] [place] [address] [facility] () Lynette se oreilly hecho un examen mdico de control que le indica que no est en antonia condicin que requiera tratamiento urgente en el Departamento de Emergencia. Un estudio ms profundo y el tratamiento de martin condicin pueden esperar sin ningn riesgo hasta que usted sea atendida/o en el consultorio de martin mdico o antonia clnica. Es responsabilidad suya arreglar antonia sherri para el seguimiento del manuela. MANEJO DE CONDICIONES NO URGENTES EN EL FUTURO 1) Si usted tiene un mdico de atencin primaria: ted debera llamar a martin mdico de atencin primaria antes de venir al departamento de emergencia. Despus de las horas de consultorio, martin doctor o martin asociado/a est disponible por telfono. El mdico o enfermero de amelia en el servicio telefnico puede asesorarle por spenser medio para atender el problema, o manuela contrario se puede programar antonia sherri. 2) Si usted no tiene un mdico de atencin primaria: Llame al mdico o clnica de referencia que aparece abajo shayna las horas de consultorio para hacer antonia sherri para que le vean. CLINICAS: [facility] [phone] [address] [facility] [phone] [address] [facility] [phone] [facility] [phone] [address] [place] [address] [phone] [facility] [phone] [address] Additional Instructions: Call your primary care doctor TOMORROW for an appointment during the next 2-3 days.See the doctor sooner or return here if your condition worsens before your appointment time. AMY GAVIN PA-C September 27, 2018 15:43
== END 2018-09-27 16:47 | disposition home or self-care (01) ==
LOC: FTE 15:01
DX: J34.89 Other specified disorders of nose and nasal sinuses (principal); E11.9 Type 2 diabetes mellitus without complications; I10 Essential (primary) hypertension; Z79.84 Long term (current) use of oral hypoglycemic drugs
CPT/HCPCS: 99281